=== PATIENT | male | born 1940 | race Caucasian/White ===

== ENCOUNTER 2017-06-13 07:01 | Day surgery (SDC) | payer MEDICARE, MEDICAID ==
[~2017-06-13 07:01] MED LIST: Propofol 200 MG/20 ML SDV ONE; Sodium Chloride 0.9% 1,000 ML IV SCH; Sodium Chloride 0.9% 5 ML Syringe FLUSH PRN
[2017-06-13] MEDS ORDERED: Ketamine 500 mg/10 ML MDV ONE (07:57)
[2017-06-13] MEDS ORDERED: Propofol 200 MG/20 ML SDV IV ONE (08:20)
[2017-06-13] MEDS ORDERED: Midazolam 1 MG/ML 2 ML SDV IV ONE (08:20)
[2017-06-13] MEDS ORDERED: Ketamine 500 mg/10 ML MDV IV ONE (08:20)
[2017-06-13] MEDS ORDERED: Propofol 200 MG/20 ML SDV ONE ×2 (08:24→08:43)
[2017-06-13] MEDS ORDERED: Midazolam 1 MG/ML 2 ML SDV ONE (08:43)
--- NOTE | 2017-06-13 11:33 | PCM.PRNOTE ---
- Free Text/Narrative Note: PROCEDURE PERFORMED: Colonoscopy PRE-PROCEDURE DIAGNOSIS/INDICATION FOR PROCEDURE: Positive FIT CONSENT: Informed consent was obtained prior to the procedure after discussion of the risks (including pain, bleeding, infection, perforation, adverse reaction to anesthesia, cardiovascular event), benefits and alternatives and expected outcomes. The patient expressed understanding and wished to proceed. Verbal consent given and consent form signed. PROCEDURAL PAUSE: Completed SEDATION: Per anesthesia DESCRIPTION OF PROCEDURE: Patient was placed in the left lateral decubitus position. After adequate sedation and anesthetic was administered, a rectal exam was performed revealing moderate external hemorrhoids without active bleeding. A lubricated Olympus Video Colonoscope was inserted into the rectum and air insufflation was performed. The colonoscope was advanced through the rectum, sigmoid, descending, transverse, and ascending colon without difficulties. The cecum was reached and the ileocecal valve as well as the appendiceal orifice were identified and pictorially documented. Ileocecal valve was also intubated and pictorially documented. After adequate visualization of the cecum, the scope was withdrawn, giving 360-degree views of the colonic mucosa and retroflexion was performed in the rectum with the following findings noted and pictorially documented: Ileocecal valve: Normal Cecum: Irregular tissue approximately 12mm in length and 2mm in width which was biopsied with hot forceps (pathology container #3) Ascending colon: Multiple polyps at 70-80cm, including one 10mm polyp removed with hot snare (pathology container #4), one 8mm polyp removed with multiple hot forceps biopsies (pathology container #1), and six 2-5mm polyps removed with hot snare biopsies (pathology containers #2 and 5); scattered other smaller polyps pictorially documented, but not biopsied given patient's decreasing tolerance of anesthesia Hepatic flexure: Normal Transverse colon: Normal Splenic flexure: Normal Descending colon: Normal Sigmoid colon: 10mm polyp at 25cm removed with hot snare (pathology container #6), 10mm polyp at 20cm removed with hot snare (pathology container #7 ); scattered other smaller polyps not biopsied given patient's decreasing tolerance of anesthesia Rectum: Mild hemorrhoid tissue Each of the polypectomy sites was closely monitored for residual bleeding after removal and adequate hemostasis noted and pictorially documented. The scope was straightened, air suction performed, and the scope withdrawn without complication, though patient had poor tolerance of anesthesia given likely underlying obstructive sleep apnea. Preparation adequacy good. IMPRESSION: Colonoscopy performed revealing multiple polyps, including several 10mm, pathology now pending, and internal and external hemorrhoids PLAN: Follow-up with patient in clinic to review pathology results once received and discuss short interval repeat colonoscopy for polypectomy of remaining polyps
== END 2017-06-13 11:59 | disposition home or self-care (01) ==
LOC: KA.SDS 07:01
PROVIDERS: ATTEND Family Medicine
DX: D12.0 Benign neoplasm of cecum (principal); D12.2 Benign neoplasm of ascending colon; D12.5 Benign neoplasm of sigmoid colon; K64.4 Residual hemorrhoidal skin tags; K64.8 Other hemorrhoids; K63.5 Polyp of colon; I10 Essential (primary) hypertension; K21.9 Gastro-esophageal reflux disease without esophagitis; E66.9 Obesity, unspecified; E11.9 Type 2 diabetes mellitus without complications; E78.2 Mixed hyperlipidemia; R05 Cough; G47.30 Sleep apnea, unspecified; E66.09 Other obesity due to excess calories; Z68.39 Body mass index [BMI] 39.0-39.9, adult; Z79.4 Long term (current) use of insulin; Z79.82 Long term (current) use of aspirin; Z79.899 Other long term (current) drug therapy; Z88.8 Allergy status to other drugs, medicaments and biological substances
CPT/HCPCS: 00812; 82962; 88305; J2250; J2704; J7030

== ENCOUNTER 2017-09-19 06:59 | Day surgery (SDC) | payer MEDICARE, MEDICAID ==
[~2017-09-19 06:59] MED LIST changes: +Midazolam 1 MG/ML 2 ML SDV ONE; -Sodium Chloride 0.9% 1,000 ML IV SCH; -Sodium Chloride 0.9% 5 ML Syringe FLUSH PRN
[2017-09-19] MEDS ORDERED: Sodium Chloride 0.9% 1,000 ML IV SCH (07:00)
[2017-09-19] MEDS ORDERED: Sodium Chloride 0.9% 5 ML Syringe FLUSH PRN (07:00)
[2017-09-19] MEDS ORDERED: Propofol 200 MG/20 ML SDV ONE ×3 (07:34→08:34)
[2017-09-19] MEDS ORDERED: Midazolam 1 MG/ML 2 ML SDV IV ONE (08:17)
[2017-09-19] MEDS ORDERED: Propofol 200 MG/20 ML SDV IV ONE (08:17)
--- NOTE | 2017-09-19 10:05 | PCM.PRNOTE ---
- Free Text/Narrative Note: PROCEDURE PERFORMED: Colonoscopy PRE-PROCEDURE DIAGNOSIS/INDICATION FOR PROCEDURE: Prior colonoscopy with multiple colon polyps, not all removed, due to patient's poor tolerance of anesthesia CONSENT: Informed consent was obtained prior to the procedure after discussion of the risks (including pain, bleeding, infection, perforation, adverse reaction to anesthesia, cardiovascular event, incomplete removal of polyps), benefits and alternatives and expected outcomes. The patient expressed understanding and wished to proceed. Verbal consent given and consent form signed. PROCEDURAL PAUSE: Completed SEDATION: Per anesthesia DESCRIPTION OF PROCEDURE: Patient was placed in the left lateral decubitus position. After adequate sedation and anesthetic was administered, a rectal exam was performed revealing moderate external hemorrhoids without active bleeding. A lubricated Olympus Video Colonoscope was inserted into the rectum and air insufflation was performed. The colonoscope was advanced through the rectum, sigmoid, descending , transverse, and ascending colon without difficulties. The cecum was reached and the ileocecal valve as well as the appendiceal orifice were identified and pictorially documented. Ileocecal valve was also intubated and pictorially documented. After adequate visualization of the cecum, the scope was withdrawn, giving 360-degree views of the colonic mucosa and retroflexion was performed in the rectum with the following findings noted and pictorially documented: Ileocecal valve: Normal Cecum: Elongated flat polypoid tissue measuring approximately 3cm in length near appendiceal orifice which was biopsied with hot forceps (pathology container #1) due to inability to completely remove Ascending colon: Multiple polyps at 70-80cm, including one 8mm polyp removed with hot snare and five 4mm polyps removed with forceps at 80cm (pathology container #2), one elongated flat polypoid tissue at 75cm biopsied with hot forceps (pathology container #3) due to inability to completely remove, 5mm polyp at 70cm removed with hot forceps (pathology conatiner #4), and another elongated flat polypoid tissue at 70cm biopsied with hot forceps (pathology container #5) due to inability to completely remove Hepatic flexure: Normal Transverse colon: Normal Splenic flexure: Normal Descending colon: Normal Sigmoid colon: 7mm polyp at 20cm removed with hot snare (pathology container #6) and 6mm polyp at 20cm removed with hot snare (pathology container #7); scattered other diminutive polyps not biopsied given patient's decreasing tolerance of anesthesia and necessity of returning to remove above larger polyps Rectum: Mild hemorrhoid tissue Each of the polypectomy sites was closely monitored for residual bleeding after removal and adequate hemostasis noted and pictorially documented. The scope was straightened, air suction performed, and the scope withdrawn without complication, though patient had poor tolerance of anesthesia given likely underlying obstructive sleep apnea. Preparation adequacy good. IMPRESSION: Colonoscopy performed revealing multiple polyps with polypectomy or biopsy pathology now pending, including three elongated polyps with incomplete removal. Also again noted internal and external hemorrhoids. PLAN: Will contact the patient when pathology results received and place referral to gastroenterology for removal of elongated cecal and ascending colon polyps.
== END 2017-09-19 11:20 | disposition home or self-care (01) ==
LOC: KA.SDS 06:59
PROVIDERS: ATTEND Family Medicine
DX: D12.2 Benign neoplasm of ascending colon (principal); D12.0 Benign neoplasm of cecum; D12.4 Benign neoplasm of descending colon; D12.5 Benign neoplasm of sigmoid colon; E11.9 Type 2 diabetes mellitus without complications; K64.4 Residual hemorrhoidal skin tags; K64.8 Other hemorrhoids; I10 Essential (primary) hypertension; E66.9 Obesity, unspecified; Z68.41 Body mass index [BMI] 40.0-44.9, adult; H91.90 Unspecified hearing loss, unspecified ear; K21.9 Gastro-esophageal reflux disease without esophagitis; E78.2 Mixed hyperlipidemia; Z87.891 Personal history of nicotine dependence; Z86.010 Personal history of colon polyps; Z79.4 Long term (current) use of insulin; Z79.82 Long term (current) use of aspirin; Z79.899 Other long term (current) drug therapy; Z88.8 Allergy status to other drugs, medicaments and biological substances
CPT/HCPCS: 00811; 82962; 88305; J2250; J2704; J7030

== ENCOUNTER 2018-08-03 04:24 | Emergency (ER) | payer MEDICARE, MEDICAID ==
[2018-08-03] MEDS ORDERED: Lidocaine 2% 5 ML SDV INJECT ONE (04:50)
[2018-08-03] MEDS: Lidocaine 2% Jelly 5 ML Tube ONE (05:00)
--- NOTE | 2018-08-03 05:34 | EDM.PDOC ---
ED HPI GENERAL MEDICAL PROBLEM - General Chief Complaint: Genitourinary Problem Stated Complaint: urine retention Time Seen by Provider: 08/03/18 05:08 Source of Information: Reports: Patient, Significant Other History Limitations: Reports: No Limitations - History of Present Illness INITIAL COMMENTS - FREE TEXT/NARRATIVE: Patient presents with feeling of urgency to urinate but can't. He has kidney failure and started dialysis less than two weeks ago. 16 days ago he had a ruptured appendix and spent 4 days in the hospital in [place] but no surgery as he needed to be on antibiotics first; so he is currently on Cipro and Flagyl. A drain was placed in the RLQ and is still present. His empties it twice/day but says there is very little accumulation. While in [place] his kidneys worsened and they determined he needed dialysis so he was transferred to [place] where he stayed about another 4 days, per . There he had dialysis twice and was discharged to home after improving. He has had dialysis 3 times in [place] for a total of 5 now, most recently yesterday. His says she thinks he usually urinates once or twice a day and has never complained like this before after dialysis. - Related Data Allergies Allergy/AdvReac Type Severity Reaction Status Date / Time No Known Allergies Allergy Verified 08/03/18 04:35 Home Meds: Home Meds Aspirin/Calcium Carbonate/Mag [Aspirin Buffered 325 mg Tab] 1 tab PO DAILY 08/19 [History] Omeprazole 20 mg PO DAILY 06/10/17 [History] Fenofibrate 160 mg PO DAILY 09/16/17 [History] Fluticasone Propionate [Flonase] 2 spray NASBOTH BID 09/16/17 [History] Sennosides/Docusate Sodium [Senna-Docusate Sodium] 1 each PO BID 09/16/17 [ History] Timolol Maleate [Timoptic 0.5% Ophth Soln] 1 drop EYEBOTH BID 09/16/17 [History] Calc Acetate 667 1 cap PO TIDMEALS 08/03/18 [History] Ciprofloxacin HCl [Cipro] 500 mg PO DAILY 08/03/18 [History] Dorzolamide HCl/Timolol Maleat [Dorzolamide-Timolol Eye Drops] 1 drop EYEBOTH BID 08/03/18 [History] Dulaglutide [Trulicity] 0.5 ml SUBCUT WEEKLY 08/03/18 [History] Furosemide 80 mg PO DAILY 08/03/18 [History] Insulin Aspart [NovoLOG] 40 unit SUBCUT BIDMEALS 08/03/18 [History] Insulin Glargine,Hum.Rec.Anlog [Basaglar Kwikpen U-100] 48 units SUBCUT BID [History] Losartan [Cozaar] 25 mg PO DAILY 08/03/18 [History] Midodrine 5 mg PO DAILY PRN 08/03/18 [History] metroNIDAZOLE [Metronidazole] 500 mg PO TID 08/03/18 [History] Past Medical History HEENT History: Reports: Glaucoma, Hard of Hearing Cardiovascular History: Reports: High Cholesterol, Hypertension Respiratory History: Reports: Asthma Gastrointestinal History: Reports: GERD Endocrine/Metabolic History: Reports: Diabetes, Type I - Infectious Disease History Infectious Disease History: Reports: Other (See Below) Other Infectious Disease History: pat. does not remember - Past Surgical History Cardiovascular Surgical History: Reports: None Respiratory Surgical History: Reports: None GI Surgical History: Reports: Colonoscopy, Hernia, Abdominal, Polypectomy Endocrine Surgical History: Reports: None Social & Family History - Family History Family Medical History: Noncontributory - Caffeine Use Caffeine Use: Reports: Coffee, Tea ED ROS GENERAL - Review of Systems Review Of Systems: See Below Constitutional: Denies: Fever, Chills, Decreased Appetite HEENT: Reports: No Symptoms Respiratory: Denies: Shortness of Breath, Cough Cardiovascular: Denies: Chest Pain, Syncope Endocrine: Reports: Other (diabetes) GI/Abdominal: Reports: Abdominal Pain (mainly just the urge to urinate). Denies : Decreased Appetite, Vomiting : Reports: Urgency Musculoskeletal: Reports: No Symptoms Skin: Reports: Pallor. Denies: Cyanosis, Jaundice, Mottled, Diaphoresis Neurological: Denies: Confusion, Dizziness, Headache, Syncope, Trouble Speaking Psychiatric: Denies: Agitation, Anxiety, Confusion ED EXAM, RENAL/ - Physical Exam Exam: See Below Exam Limited By: No Limitations General Appearance: Alert, WD/WN, No Apparent Distress Eye Exam: Bilateral Eye: EOMI, Normal Inspection, PERRL Ears: Normal External Exam, Hearing Grossly Normal Nose: Normal Inspection, No Blood Throat/Mouth: Normal Inspection, Normal Lips, Normal Voice, No Airway Compromise Head: Atraumatic, Normocephalic Neck: Normal Inspection, Full Range of Motion Respiratory/Chest: No Respiratory Distress, Lungs Clear, Normal Breath Sounds, No Accessory Muscle Use Cardiovascular: Normal Peripheral Pulses, Regular Rate, Rhythm, No Murmur GI/Abdominal: Soft, Non-Tender, No Distention, Abnormal Bowel Sounds (decreased) , Other (there is a drain in RLQ, no erythema, induration or cellulitis). No: Guarding, Rigid (Male) Exam: Other (No erythema or swelling of genitals. A mercado catheter was easily placed yielding a very small amount of urine. Bladder scan had indicated 24 ml.) Extremities: Normal Inspection, Normal Range of Motion Neurological: Alert, Oriented, Normal Cognition, No Motor/Sensory Deficits Psychiatric: Normal Affect, Normal Mood Skin Exam: Warm, Dry, Intact, No Rash, Pallor (looks a little pale) Course - Vital Signs Last Recorded V/S: Last Vital Signs Temp 97.6 F 08/03/18 04:25 Pulse 72 08/03/18 04:25 Resp 18 08/03/18 04:25 BP 110/58 L 08/03/18 04:25 Pulse Ox 97 08/03/18 04:25 - Orders/Labs/Meds Orders: Active Orders 24 hr Category Date Time Status Mercado Catheter Insertion [Insert Urinary Catheter] [OM. Care 08/03/18 05:00 Ordered PC] Q24H Urinary Catheter Assessment [RC] ASDIRECTED Care 08/03/18 04:55 Active CULTURE URINE [RM] Stat Lab 08/03/18 05:42 Ordered Labs: Laboratory Tests 08/03/18 08/03/18 08/03/18 Range/Units 04:53 05:10 05:12 WBC 10.38 H (5.00-10.00) 10^3/uL RBC 3.36 L (4.50-6.00) 10^6/uL Hgb 9.9 L (13.0-17.0) g/dL Hct 31.0 L (40.0-52.0) % MCV 92.3 H D (82.0-92.0) fL MCH 29.5 (27.0-31.0) pg MCHC 31.9 L (32.0-36.0) g/dL RDW 14.8 H (11.5-14.5) % Plt Count 349 (150-400) 10^3/uL MPV 8.8 (7.4-10.4) fL Immature Gran % (Auto) 2.2 (0.0-5.0) % Neut % (Auto) 56.9 (50.0-70.0) % Lymph % (Auto) 19.3 L (20.0-40.0) % [place] % (Auto) 17.9 H (2.0-8.0) % Eos % (Auto) 2.7 (1.0-3.0) % Baso % (Auto) 1.0 (0.0-1.0) % Immature Gran # (Auto) 0.23 (0.00-0.50) 10^3/uL Neut # (Auto) 5.91 (2.50-7.00) 10^3/uL Lymph # (Auto) 2.00 (1.00-4.00) 10^3/uL [place] # (Auto) 1.86 H (0.10-0.80) 10^3/uL Eos # (Auto) 0.28 (0.10-0.30) 10^3/uL Baso # (Auto) 0.10 (0.00-0.10) 10^3/uL Sodium 137 (136-145) mmol/L Potassium 4.6 (3.3-5.3) mmol/L Chloride 99 (98-115) mmol/L Carbon Dioxide 25.9 (21.0-32.0) mmol/L Anion Gap 16.7 H (5-15) mmol/L BUN 32 H (6-25) mg/dL Creatinine 4.18 H D (0.51-1.17) mg/dL Est Cr Clr Drug Dosing TNP Estimated GFR (MDRD) 14 mL/min Glucose 175 H (75 - 99) mg/dL Calcium 9.1 (8.7-10.3) mg/dL C-Reactive Protein 2.5 H (0.0-0.9) mg/dL Specimen Type Urincath Urine Color Dark yellow H (YELLOW) Urine Appearance Slightly cloudy H (CLEAR) Urine pH 5.0 (5.0-9.0) Ur Specific [place] >= 1.030 (1.005-1.030) Urine Protein 100 H (NEGATIVE) mg/dL Urine Glucose (UA) Negative (NEGATIVE) mg/dL Urine Ketones Trace H (NEGATIVE) mg/dL Urine Occult Blood Negative (NEGATIVE) Urine Nitrite Negative (NEGATIVE) Urine Bilirubin Small H (NEGATIVE) Urine Urobilinogen 0.2 (0.2-1.0) E.U./dL Ur Leukocyte Esterase Negative (NEGATIVE) Urine RBC 0-5 (0-5) /HPF Urine WBC 0-5 (0-5) /HPF Ur Epithelial Cells Moderate H /LPF Amorphous Sediment Many H (0/HPF) /HPF Urine Bacteria Moderate H (NONE TO FEW) /HPF Meds: Medications Discontinued Medications Generic Name Dose Route Start Last Admin Trade Name Freq PRN Reason Stop Dose Admin Lidocaine HCl Confirm 08/03/18 04:50 Xylocaine 2% Jelly Administered 08/03/18 04:51 Dose 5 ml .ROUTE .STK-MED ONE - Re-Assessments/Exams Free Text/Narrative Re-Assessment/Exam: 08/03/18 06:15 Creatinine 4.18, GFR 14, CRP 2.5, WBC 10.3, UA moderate bacteria and protein from cath specimen. Discussed case with Gigi Dhaliwal NP explosives detonator for [place] and will have patient follow up with them in clinic later today. Patient is stable. Discussed findings and recommendations with patient and his . Patient feels like going home now and is discharged in stable condition. Departure - Departure Time of Disposition: 06:10 Disposition: Home, Self-Care 01 Condition: Good Clinical Impression: CKD (chronic kidney disease) stage 5, GFR less than 15 ml/min, Urinary urgency - Discharge Information Forms: ED Department Discharge Additional Instructions: 1. Continue your medications as directed. 2. Follow up with Hailey Dejesus today as scheduled. - My Orders Last 24 Hours: My Active Orders 08/03/18 04:55 Urinary Catheter Assessment [RC] ASDIRECTED 08/03/18 05:00 Mercado Catheter Insertion [Insert Urinary Catheter] [OM.PC] Q24H 08/03/18 05:42 CULTURE URINE [RM] Stat - Assessment/Plan Last 24 Hours: My Active Orders 08/03/18 04:55 Urinary Catheter Assessment [RC] ASDIRECTED 08/03/18 05:00 Mercado Catheter Insertion [Insert Urinary Catheter] [OM.PC] Q24H 08/03/18 05:42 CULTURE URINE [RM] Stat
[2018-08-03 05:36] LABS: ANION GAP 16.7 mmol/L (5-15); CHLORIDE,CL 99 mmol/L (98-115); SODIUM,NA 137 mmol/L (136-145)
[2018-08-03 05:48] VITALS: BP 110/58
[2018-08-03] MEDS: Lidocaine 2% Jelly 5 ML Tube TOP ONE (17:05)
== END 2018-08-03 06:15 | disposition home or self-care (01) ==
LOC: KA.ED 04:24
DX: I12.0 Hypertensive chronic kidney disease with stage 5 chronic kidney disease or end stage renal disease (principal); N18.5 Chronic kidney disease, stage 5; E10.22 Type 1 diabetes mellitus with diabetic chronic kidney disease; K21.9 Gastro-esophageal reflux disease without esophagitis; Z79.82 Long term (current) use of aspirin; Z79.899 Other long term (current) drug therapy; Z99.2 Dependence on renal dialysis
CPT/HCPCS: 36415; 51702; 51798; 80048; 81001; 85025; 86140; 87086; 99283; 99284

== ENCOUNTER 2021-04-02 18:00 | Emergency (ER) | payer MEDICAID, MEDICARE ==
[2021-04-02 19:02] LABS: ANION GAP 15.8 mmol/L (5-15); CHLORIDE,CL 98 mmol/L (98-107); SODIUM,NA 139 mmol/L (136-145)
[2021-04-02] MEDS: Sodium Chloride 0.9% 1,000 ML IV SCH (19:18)
[2021-04-02 19:21] LABS: RESPIRATORY SYNCYTIAL VIR NAA NEGATIVE (NEGATIVE)
[2021-04-02 19:24] LABS: CORONAVIRUS COVID-19 NAA POSITIVE (NEGATIVE)
[2021-04-02] MEDS: Azithromycin 500 MG in Sodium Chloride 0.9% 250 ML IV ONE (20:16)
[2021-04-02] MEDS: Amoxicillin/Clavulanate K 875-125 MG Tab PO ONE (20:18)
== END 2021-04-02 21:50 | disposition home or self-care (01) ==
LOC: KA.ED 18:00
DX: U07.1 COVID-19 (principal); D49.1 Neoplasm of unspecified behavior of respiratory system; J32.1 Chronic frontal sinusitis; H04.131 Lacrimal cyst, right lacrimal gland; E11.22 Type 2 diabetes mellitus with diabetic chronic kidney disease; I12.9 Hypertensive chronic kidney disease with stage 1 through stage 4 chronic kidney disease, or unspecified chronic kidney disease; N18.9 Chronic kidney disease, unspecified; K21.9 Gastro-esophageal reflux disease without esophagitis; M19.90 Unspecified osteoarthritis, unspecified site; Z79.82 Long term (current) use of aspirin; Z79.4 Long term (current) use of insulin; Z79.899 Other long term (current) drug therapy
CPT/HCPCS: 0241U; 36415; 70450; 80053; 82947; 83880; 85025; 96365; 99284; J0456; J7030; J7050